=== PATIENT | male | born 1965 | race Caucasian/White ===

== ENCOUNTER 2022-02-27 17:56 | Inpatient (IN) | payer MEDICAID, SELFPAY ==
[2022-02-27 18:28] VITALS: PULSE 82; RESP 18; TEMP 36.8; O2SAT 97; BMI 26.2
[2022-02-27 20:00] VITALS: BP 175/88
--- NOTE | 2022-02-27 21:16 | ECG_ITS ---
Test Reason : MED CLEARANCE Blood Pressure : / mmHG Vent. Rate : 068 BPM Atrial Rate : 068 BPM P-R Int : 142 ms QRS Dur : 086 ms QT Int : 482 ms P-R-T Axes : 057 027 036 degrees QTc Int : 512 ms Normal sinus rhythm Prolonged QT Abnormal ECG No previous ECGs available Referred By: Nohemi Silva Electronically Signed By:KEVAN ALCARAZ
--- NOTE | 2022-02-27 21:21 | ED.ALCOHOL ---
HPI - Alcohol General Chief Complaint: ETOH/Substance Use Stated Complaint: alcohol withdrawal Time Seen by Provider: 02/27/22 20:42 Source: patient and family Mode of arrival: ambulatory Limitations: no limitations History of Present Illness HPI narrative: 57 yo male with history of HTN, HLD, anxiety, depression non compliant with all medication for months here seeking detox for alcohol. Patient reports he drink 1 quart of vodka daily and last drink was around 3pm. he has a history of alcohol withdrawal seizures. He denies additional substance use. He went to [facility] 2 weeks ago but left because he did not like it there. He denies SI. Related Data Allergies Allergy/AdvReac Type Severity Reaction Status Date / Time No Known Allergies Allergy Verified 02/27/22 18:28 Review of Systems Review of Systems: Yes all other systems are reviewed and are negative Constitutional: Constitutional: Reports no additional constitutional complaints, Denies body ache(s), Denies chills, Denies fever(s), Reports headache(s) and Denies weakness Eyes: Eyes: Reports no additional eye complaints and Denies change in vision ENT: Reports system reviewed and no additional complaints, except as documented, Denies dizziness, Reports headache(s), Denies nasal congestion, Denies nasal discharge and Denies neck pain Cardiovascular: Cardiovascular: Reports no additional cardiovascular complaints, Denies chest pain, Denies leg edema and Denies dyspnea Respiratory: Respiratory: Reports no additional respiratory complaints, Denies cough and Denies dyspnea Gastrointestinal: Gastrointestinal: Reports no additional gastrointestinal complaints, Denies abdominal pain, Denies diarrhea, Denies nausea and Denies vomiting Genitourinary: Genitourinary: Denies urinary incontinence Musculoskeletal: Musculoskeletal: Reports no additional musculoskeletal complaints, Denies back pain, Denies arthralgias, Denies joint swelling, Denies neck pain, Denies numbness and Denies tingling Integumentary/Breasts: Skin/Breast: Reports system reviewed and no additional complaints, except as docu and Denies rash Neurologic: Reports system reviewed and no additional complaints, except as documented, Denies dizziness, Reports headache(s), Denies numbness, Denies tingling, Reports tremor(s) and Denies weakness Psychiatric: Psychiatric: Reports anxiety, Denies homicidal ideation and Denies suicidal ideation [facility] Past Medical History Attestation statement: The following information was validated with the patient. Source: old records reviewed and nursing notes reviewed Social History Social History Advance Directives: No Advance Directives Information Provided: Yes Physical Exam ED Vital Signs: Vital Signs - 24 hr 02/27/22 18:28 02/27/22 22:52 02/27/22 20:00 Temperature 98.2 F 98.3 F Pulse Rate 82 82 Respiratory Rate 18 20 Blood Pressure 175/91 H 175/88 H Pulse Oximetry 97 97 Oxygen Delivery Method Room Air Room Air BMI result Body Mass Index 26.2 Const General: alert Orientation/consciousness: patient oriented x3 Limitations: no limitations HENMT Other: Bruising over nasal bridge in various stages of healing with abrasions Head: No Lainez's sign and No raccoon eyes Ears: hearing grossly normal bilaterally Eyes General: appearance normal, both eyes and all related structures Neck Neck: Yes normal visual inspection Chest Chest palpation & inspection: normal inspection of the chest Resp Effort & Inspection: normal respiratory effort Auscultation: clear to auscultation bilaterally GI Inspection: Yes normal to inspection Palpation (GI): Soft to palpation and nontender Back/Spine/Pelvis Thoracic/Lumbar Spine: thoracic and lumbar spine normal to inspection Skin General skin exam: no rashes or lesions noted Neuro General: patient oriented x3 and moves all extremities Cranial nerves: Yes Midline tongue present Cognition (Neuro): normal cognition Gait exam (Neuro): Normal gait present Motor exam (neuro): 5/5 motor strength present throughout Sensory Exam: Normal double simultaneous stimulation for sensation Extrem Other: abrasions over bilateral legs Course Course Course Narrative: Reviewed chemistries. Mild hypokalemia. Will replace orally. Mildly elevated LFTs which is likely secondary to alcohol use. Reevaluation(s) Reevaluation #1: 1050-1 hr post ativan patient scoring CIWA 9. Will start phenobarb protocol Reevaluation #2: 0000-Informed that patient has CIWA of 15 from nursing. Unfortunately, there is delay in obtaining phenobarbital. supervisor partial denture department aware. At this point patient will need admission for management of withdrawal symptoms. Spoke to Dr Diop who accepted admission. I was informed by nursing that family was looking to speak to me. I went to the patients room and he tells me they went home for the night and he does not want me to call them at this time in the night. However, if they call we can share updates with them over the phone. I was also informed by nursing that the patient is c/o left sided chest pain for the last 3 days. Will add troponin. Doubt ACS Reevaluation #3: 0040-troponin is 7. Less likely ACS with symptoms for 3 days MDM - Alcohol MDM Narrative Medical decision making narrative: 57 yo male with long standing history of alcohol abuse here seeking detox. NO SI. CIWA on arrival is 9 Will need labs, tox screen, EKG, lorazepam. Patient may need admission vs detox Differential Diagnosis Differential diagnosis: Likely alcohol dependence, alcohol intoxication, alcohol withdrawal syndrome and alcohol withdrawal seizure Medical Records Attestation: I reviewed the patient's medical records. Lab Data Attestation: I reviewed the patient's lab results. Result diagrams: 02/27/22 21:26 02/27/22 21:26 Labs: Lab Results 02/27/22 02/27/22 02/27/22 Range/Units 21:26 21:26 21:26 WBC 5.5 (4.8-10.8) X10*3/uL RBC 4.17 L (4.60-5.80) X10*6/uL Hgb 13.0 L (14.0-18.0) g/dl Hct 37.5 L (42.0-52.0) % MCV 89.9 (80.0-98.0) fL MCH 31.2 (27.0-33.0) pg MCHC 34.7 (31.0-36.0) g/dl RDW 15.2 (11.0-16.0) % Plt Count 171 (160-400) X10*3/uL MPV 8.8 L (9.4-12.4) fL Immature Gran % (Auto) 0.4 (0.0-0.4) % Neut % (Auto) 61.8 (45-73) % Lymph % (Auto) 24.5 (20-40) % Valencia % (Auto) 11.7 H (2-11) % Eos % (Auto) 0.9 (0-4) % Baso % (Auto) 0.7 (0-2) % Lymph # (Auto) 1.3 (1.2-4.9) X10*3/uL Valencia # (Auto) 0.6 (0.1-1.2) X10*3/uL Eos # (Auto) 0.1 (0.0-0.4) X10*3/uL Baso # (Auto) 0.0 (0.0-0.2) X10*3/uL Abs Immat Gran (auto) 0.02 (0.00-0.03) X10*3/uL Absolute Neuts (auto) 3.4 (2.0-8.3) x10*3/uL Absolute Nucleated RBC 0.000 (0.0-0.012) X10*3/uL Nucleated RBC % (auto) 0.0 (0.0-0.2) /100WBC Sodium 140 (135-145) mmol/L Potassium 3.1 L (3.3-5.1) mmol/L Chloride 98 (96-108) mmol/L Carbon Dioxide 27 (22-29) mmol/L Anion Gap 18 (12-20) BUN 10 (9-16) mg/dL Creatinine 0.71 (0.5-1.4) mg/dL Estim Creat Clear Calc 116.1 Estimated GFR > 60 Random Glucose 120 H (60-115) mg/dL Calcium 9.5 (8.4-10.2) mg/dL Magnesium (1.6-2.6) mg/dL Total Bilirubin (0.0-1.0) mg/dL Direct Bilirubin (0.0-0.5) mg/dL AST (5-37) U/L ALT (0-40) U/L Alkaline Phosphatase (39-117) U/L Troponin I High Sens (<3.5-35.0) ng/L Total Protein (6.5-8.0) g/dL Albumin (3.5-5.0) g/dL Ethyl Alcohol 62 mg/dL COVID-19 (ABDIRIZAK) (Negative) COVID-19 Clin Com 02/27/22 02/27/22 02/27/22 Range/Units 21:26 21:26 22:57 WBC (4.8-10.8) X10*3/uL RBC (4.60-5.80) X10*6/uL Hgb (14.0-18.0) g/dl Hct (42.0-52.0) % MCV (80.0-98.0) fL MCH (27.0-33.0) pg MCHC (31.0-36.0) g/dl RDW (11.0-16.0) % Plt Count (160-400) X10*3/uL MPV (9.4-12.4) fL Immature Gran % (Auto) (0.0-0.4) % Neut % (Auto) (45-73) % Lymph % (Auto) (20-40) % Valencia % (Auto) (2-11) % Eos % (Auto) (0-4) % Baso % (Auto) (0-2) % Lymph # (Auto) (1.2-4.9) X10*3/uL Valencia # (Auto) (0.1-1.2) X10*3/uL Eos # (Auto) (0.0-0.4) X10*3/uL Baso # (Auto) (0.0-0.2) X10*3/uL Abs Immat Gran (auto) (0.00-0.03) X10*3/uL Absolute Neuts (auto) (2.0-8.3) x10*3/uL Absolute Nucleated RBC (0.0-0.012) X10*3/uL Nucleated RBC % (auto) (0.0-0.2) /100WBC Sodium (135-145) mmol/L Potassium (3.3-5.1) mmol/L Chloride (96-108) mmol/L Carbon Dioxide (22-29) mmol/L Anion Gap (12-20) BUN (9-16) mg/dL Creatinine (0.5-1.4) mg/dL Estim Creat Clear Calc Estimated GFR Random Glucose (60-115) mg/dL Calcium (8.4-10.2) mg/dL Magnesium 1.6 (1.6-2.6) mg/dL Total Bilirubin 1.2 H (0.0-1.0) mg/dL Direct Bilirubin 0.4 (0.0-0.5) mg/dL AST 128 H (5-37) U/L ALT 108 H (0-40) U/L Alkaline Phosphatase 116 (39-117) U/L Troponin I High Sens 7.4 (<3.5-35.0) ng/L Total Protein 6.8 (6.5-8.0) g/dL Albumin 4.1 (3.5-5.0) g/dL Ethyl Alcohol mg/dL COVID-19 (ABDIRIZAK) Negative (Negative) COVID-19 Clin Com See Note ECG Data ECG #1: Attestation: I personally reviewed and interpreted this ECG as follows: ECG interpretation date: 02/27/22 ECG interpretation time: 21:30 Interpretation: NSR with rate 68, normal pr, normal qrs, normal qt T waves peaked Discharge Plan Discharge Clinical Impression: Alcohol withdrawal syndrome Patient Disposition: Admitted As Inpatient
[2022-02-27] MEDS: lisinopriL 10 MG TABLET PO (21:32)
[2022-02-27] MEDS: LORazepam 1 MG TABLET 2 MG PO (21:32)
[2022-02-27 21:34] LABS: Eosinophils Absolute Auto 0.1 X10*3/uL (0.0-0.4); Eosinophils Percent Auto 0.9 % (0-4); Imm Gran Abs Auto 0.02 X10*3/uL (0.00-0.03); Imm Gran Pct Auto 0.4 % (0.0-0.4); Mean Corpuscular HGB Conc 34.7 g/dl (31.0-36.0); PLT CLUMP 1; SCAN SMEAR FLAG 1
--- NOTE | 2022-02-27 21:34 | PC.NURSE ---
IV established, labs obtained, pt medicated per SEP.
[2022-02-27 21:36] LABS: Basophils Percent Auto 0.7 % (0-2); Hematocrit 37.5 % (42.0-52.0); Lymphocytes Absolute Auto 1.3 X10*3/uL (1.2-4.9); Lymphocytes Percent Auto 24.5 % (20-40); Mean Corpuscular Hemoglobin 31.2 pg (27.0-33.0); Mean Corpuscular Volume 89.9 fL (80.0-98.0); Mean Platelet Volume 8.8 fL (9.4-12.4); Monocytes Absolute Auto 0.6 X10*3/uL (0.1-1.2); Monocytes Percent Auto 11.7 % (2-11); Neutrophils Absolute Auto 3.4 x10*3/uL (2.0-8.3); Neutrophils Percent Auto 61.8 % (45-73); Red Blood Count 4.17 X10*6/uL (4.60-5.80); Red Cell Distribution Width 15.2 % (11.0-16.0)
[2022-02-27 21:40] LABS: Platelet Count 171 X10*3/uL (160-400); White Blood Count 5.5 X10*3/uL (4.8-10.8)
[2022-02-27 22:02] LABS: Ethanol 62 mg/dL
[2022-02-27 22:03] LABS: Anion Gap 18 (12-20); Blood Urea Nitrogen 10 mg/dL (9-16); Calcium 9.5 mg/dL (8.4-10.2); Carbon Dioxide 27 mmol/L (22-29); Chloride 98 mmol/L (96-108); Creatinine Clr Calc Pharmacy 116.1; Estimated Glomerular Filt Rate > 60; Glucose Random 120 mg/dL (60-115); Potassium 3.1 mmol/L (3.3-5.1); Sodium 140 mmol/L (135-145)
[2022-02-27 22:08] LABS: Alanine Aminotransferase 108 U/L (0-40); Albumin Level 4.1 g/dL (3.5-5.0); Alkaline Phosphatase 116 U/L (39-117); Aspartate Amino Transferase 128 U/L (5-37); Bilirubin Direct 0.4 mg/dL (0.0-0.5); Bilirubin Total 1.2 mg/dL (0.0-1.0); Magnesium 1.6 mg/dL (1.6-2.6); Total Protein 6.8 g/dL (6.5-8.0)
[2022-02-27 22:52] VITALS: BP 175/91; PULSE 82; RESP 20; TEMP 36.8; O2SAT 97
[2022-02-27 23:23] LABS: COVID-19 Test Negative (Negative); IDNOW Serial# 16C4AD1C
[2022-02-27 23:34] LABS: MANUAL DIFF FLAG NO
[2022-02-27] MEDS: Potassium Chloride ER 20 MEQ TAB.ER.PRT 40 MEQ PO (23:37)
--- NOTE | 2022-02-27 23:38 | PC.NURSE ---
rn to bedside to find pt awake, alert, skin pwd, respirations even and unlabored without distress. pt reports left sided chest pain that has been present x3 days and is constant without any changes. Pt inquiring about Injection provider made him aware of to assist with current symptoms; RN consulting MD and charge master analyst regarding our policy as patient not slated for admission at this time. Pt had a bedside visitor present briefly looking for updates and requesting that the provider speak with them directly as they are looking to see whether they should stay and/or leave; RN to make PA aware. Pt currently scoring 15 on the CIWA scale at this time due to reported symptoms, PA and MD to be made aware.
--- NOTE | 2022-02-28 00:01 | PC.NURSE ---
nursing inspection and testing supervisor outreached via tigertext requesting phenobarbital as the medication is not available on the unit. pt and pa to be made aware
[2022-02-28] MEDS: PHENobarbitaL sodium 130 MG/ML IM ONCE 226 MG IM (00:39)
[2022-02-28 00:40] LABS: Troponin-I High Sensitivity 7.4 ng/L (<3.5-35.0)
[2022-02-28 01:30] VITALS: BP 141/85; PULSE 80; RESP 24; O2SAT 96
[2022-02-28 03:15] VITALS: BP 141/84; PULSE 76; RESP 18; O2SAT 95
[2022-02-28] MEDS: PHENobarbitaL sodium 130 MG/ML VIAL IM Q3Hx2 170 MG IM ×2 (03:52→07:40)
[2022-02-28] MEDS: 0.9 % Sodium Chloride 1,000 ML 100 ML IVCONT ×3 (03:52→22:06)
[2022-02-28 07:00] LABS: MANUAL DIFF FLAG NO
[2022-02-28 07:05] LABS: Basophils Percent Auto 0.3 % (0-2); Eosinophils Absolute Auto 0.1 X10*3/uL (0.0-0.4); Hematocrit 33.6 % (42.0-52.0); Hemoglobin 11.7 g/dl (14.0-18.0); Imm Gran Abs Auto 0.03 X10*3/uL (0.00-0.03); Imm Gran Pct Auto 0.5 % (0.0-0.4); Lymphocytes Absolute Auto 1.4 X10*3/uL (1.2-4.9); Lymphocytes Percent Auto 22.7 % (20-40); Mean Corpuscular HGB Conc 34.8 g/dl (31.0-36.0); Mean Corpuscular Volume 88.9 fL (80.0-98.0); Mean Platelet Volume 9.5 fL (9.4-12.4); Monocytes Absolute Auto 0.9 X10*3/uL (0.1-1.2); Monocytes Percent Auto 14.5 % (2-11); Neutrophils Absolute Auto 3.6 x10*3/uL (2.0-8.3); Platelet Count 147 X10*3/uL (160-400); Red Blood Count 3.78 X10*6/uL (4.60-5.80); Red Cell Distribution Width 14.7 % (11.0-16.0); White Blood Count 5.9 X10*3/uL (4.8-10.8)
--- NOTE | 2022-02-28 07:07 | P.HPHOSP_ITS ---
History of Present Illness Date of Service: 02/28/22 Chief Complaint: alcohol withdrawal 57-year-old male with past medical history of alcohol abuse presents to the hospital with alcohol withdrawal. Patient reports that he is interested in detox and his last drink was was about a day ago. He drinks about a qt of alcohol a day history of withdrawal seizures. Patient has nausea, no vomiting, has anxiety, and shaking, he has no hallucinations. patient denies any headache, no change in vision, no abdominal pain, no urinary symptoms and no lower extremity edema. On arrival to the ED patient hemodynamically stable though significant abnormal vitals except for hypertension. Labs are significant for WBC count of 5.9, hemoglobin of 11.7, hematocrit 33.6, total bili of 1.2, AST of 128, ALT of 108 patient started on phenobarb protocol be admitted further management Review of Systems Review of Systems: Yes all other systems are reviewed and are negative [facility] Medical History Alcohol abuse Family History (Updated 02/28/22 @ 07:20 by Genevieve Diop MD) Other No family history of coronary artery disease Surgical History (Updated 02/28/22 @ 07:21 by Genevieve Diop MD) History of hernia repair Social History (Updated 02/28/22 @ 07:22 by Genevieve Diop MD) Alcohol intake: current Tobacco use type: Cigarette Cigarette Packs Per Day: 1 Use of substances other than those prescribed or required for medical reasons: No Advance Directives: No Advance Directives Information Provided: Yes Meds Allergies Allergy/AdvReac Type Severity Reaction Status Date / Time No Known Allergies Allergy Verified 02/27/22 18:28 Active Medications: Current Medications Acetaminophen (Acetaminophen 325 Mg Tablet) 650 mg PO Q6H PRN PRN Reason: Pain, Mild (Pain Scale 1-3) Docusate Sodium (Docusate Sodium 100 Mg Capsule) 100 mg PO DAILY PRN PRN Reason: Constipation Enoxaparin Sodium (Enoxaparin Sodium 40 Mg/0.4 Ml Syringe) 40 mg SUBCUT Q24H [facility] Folic Acid (Folic Acid 1 Mg Tablet) 1 mg PO DAILY [facility] Sodium Chloride (Ns) 1,000 mls @ 100 mls/hr IVCONT .Q10H [facility] Last Admin: 02/28/22 03:52 Dose: 100 mls/hr Ondansetron HCl (Ondansetron Hcl 4 Mg/2 Ml Vial) 4 mg IVPUSH Q8H PRN PRN Reason: Nausea and Vomiting Pharmacy Consult (Consult Rx Etoh Phenob Im/Po) 1 each MISCELLANE ONCE PRN; Protocol PRN Reason: Consult order Pharmacy Consult (Consult Rx Perform Med Rec) 1 each MISCELLANE ONCE PRN PRN Reason: Consult order Phenobarbital (Phenobarbital 15 Mg Tablet) 45 mg PO BID [facility] Stop: 03/02/22 09:01 Phenobarbital (Phenobarbital 15 Mg Tablet) 15 mg PO BID [facility] Stop: 03/04/22 09:01 Phenobarbital (Phenobarbital 15 Mg Tablet) 15 mg PO BEDTIME [facility] Stop: 03/05/22 21:01 Sodium Chloride (0.9 % Sodium Chloride Flush 3 Ml Syringe) 3 ml IVFLUSH QSHIFT [facility] Thiamine HCl (Thiamine Hcl 100 Mg Tablet) 100 mg PO DAILY [facility] Home Medications Medication Instructions Recorded Confirmed Last Taken Type No Known Home Meds 02/28/22 02/28/22 Unknown History Physical Exam Vital Signs and Narrative: Vital Signs: Last Vital Signs Temp 98.3 F 02/27/22 22:52 Pulse 76 02/28/22 03:15 Resp 18 02/28/22 03:15 BP 141/84 H 02/28/22 03:15 Pulse Ox 95 02/28/22 03:15 O2 Del Method 02/28/22 03:15 BMI result Body Mass Index 26.2 Results Labs CBC and Chem 7: 02/28/22 06:37 02/27/22 21:26 Labs: Laboratory Results - last 24 hr 02/27/22 02/27/22 02/27/22 21:26 21:26 21:26 MCV 89.9 MCH 31.2 MCHC 34.7 RDW 15.2 Plt Count 171 MPV 8.8 L Immature Gran % (Auto) 0.4 Neut % (Auto) 61.8 Lymph % (Auto) 24.5 [place] % (Auto) 11.7 H Eos % (Auto) 0.9 Baso % (Auto) 0.7 Lymph # (Auto) 1.3 [place] # (Auto) 0.6 Eos # (Auto) 0.1 Baso # (Auto) 0.0 Abs Immat Gran (auto) 0.02 Absolute Neuts (auto) 3.4 Absolute Nucleated RBC 0.000 Nucleated RBC % (auto) 0.0 Anion Gap 18 Estim Creat Clear Calc 116.1 Estimated GFR > 60 Random Glucose 120 H Calcium 9.5 Magnesium Total Bilirubin Direct Bilirubin AST ALT Alkaline Phosphatase Total Protein Albumin Ethyl Alcohol 62 COVID-19 (ABDIRIZAK) COVID-19 Clin Com 02/27/22 02/27/22 02/28/22 21:26 22:57 06:37 MCV 88.9 MCH 31.0 MCHC 34.8 RDW 14.7 Plt Count 147 L MPV 9.5 Immature Gran % (Auto) 0.5 H Neut % (Auto) 61.0 Lymph % (Auto) 22.7 Union % (Auto) 14.5 H Eos % (Auto) 1.0 Baso % (Auto) 0.3 Lymph # (Auto) 1.4 [place] # (Auto) 0.9 Eos # (Auto) 0.1 Baso # (Auto) 0.0 Abs Immat Gran (auto) 0.03 Absolute Neuts (auto) 3.6 Absolute Nucleated RBC 0.000 Nucleated RBC % (auto) 0.0 Anion Gap Estim Creat Clear Calc Estimated GFR Random Glucose Calcium Magnesium 1.6 Total Bilirubin 1.2 H Direct Bilirubin 0.4 AST 128 H ALT 108 H Alkaline Phosphatase 116 Total Protein 6.8 Albumin 4.1 Ethyl Alcohol COVID-19 (ABDIRIZAK) Negative COVID-19 Clin Com See Note Assessment and Plan (1) Alcohol withdrawal syndrome: Status: Acute Plan 57-year-old male with a past medical history of alcohol abuse presents to the hospital with alcohol withdrawals # alcohol abuse with alcohol withdrawal - has CIWA of 15 - started on phenobarb protocol, will add thiamine and folic acid - monitor withdrawal symptoms dvt ppx: lovenox Quality Stroke Does the patient have a stroke diagnosis?: No VTE Prior VTE?: No VTE Risk Level:: Medical - moderate - high VTE Device Contraindication: Treatment Not Indicated VTE Drug Contraindication: N/A - Med Ordered
[2022-02-28 07:28] LABS: Anion Gap 14 (12-20); Blood Urea Nitrogen 9 mg/dL (9-16); Carbon Dioxide 25 mmol/L (22-29); Chloride 101 mmol/L (96-108); Creatinine Clr Calc Pharmacy 135.2; Estimated Glomerular Filt Rate > 60; Glucose Random 97 mg/dL (60-115); Sodium 136 mmol/L (135-145)
[2022-02-28 07:39] VITALS: BP 124/64; PULSE 74; RESP 19; O2SAT 97
[2022-02-28 07:45] LABS: Calcium 8.6 mg/dL (8.4-10.2)
--- NOTE | 2022-02-28 08:22 | PHA.MEDREC ---
Pharmacy Consult ? Medication Reconciliation Pharmacy has completed the medication reconciliation.
[2022-02-28] MEDS: Enoxaparin Sodium 40 MG/0.4 ML SYRINGE SUBCUT (09:04)
[2022-02-28] MEDS: Thiamine HCL 100 MG TABLET PO (09:05)
[2022-02-28] MEDS: Folic Acid 1 MG TABLET PO (09:05)
[2022-02-28 09:08] LABS: Alanine Aminotransferase 89 U/L (0-40); Albumin Level 3.5 g/dL (3.5-5.0); Alkaline Phosphatase 101 U/L (39-117); Aspartate Amino Transferase 104 U/L (5-37); Bilirubin Direct 0.7 mg/dL (0.0-0.5); Bilirubin Total 1.9 mg/dL (0.0-1.0); Total Protein 5.5 g/dL (6.5-8.0)
[2022-02-28] MEDS: Nicotine 21 MG PATCH.TD24 TRANSDERMA (10:14)
--- NOTE | 2022-02-28 11:19 | MHC.RECOVRN ---
Chart reviewed. Attempted to meet with pt. Pt sleeping. Will return at a later time. T/w available as needed.
[2022-02-28 12:38] VITALS: BP 129/67; PULSE 67; RESP 16; O2SAT 97
--- NOTE | 2022-02-28 13:26 | MHC.RECOVRN ---
Attempted to meet with pt, soundly sleeping, snoring. Does not wake to name. Will follow up at a different time.
--- NOTE | 2022-02-28 14:19 | PM.EVENT ---
Event Note Date of Service: 02/28/22 Event Note: Patient was admitted-alcohol withdrawal, Seen and examined again-still tramulous and anxious. Physical exam: Appearance: Alert.? Oriented X3.anxious and tramulous . cvs: rrr, [id number] , no murmur res: clear to auscultation ,no rhonchii or wheezing abd: no rebound or guarding ,nt, bs present. ext pulses present , no cyanosis. neuro: axo3 , nonfocal. assessment and plan coordinated in h&p note.
[2022-02-28] MEDS: Acetaminophen 325 MG TABLET 650 MG PO (14:54)
--- NOTE | 2022-02-28 15:30 | MHC.CM.PN ---
No IMM Required PATIENT LIVES ALONE, IS INDEPENDENT AT HOME AND COMMUNITY, DENIES USE OF DME OR RECEIVING HOME SERVICES, NOT COVID VAX'D, PCP-LEANNA MENDEZ, HCP-EDUCATED/DECLINED TO COMPLETE AT THIS TIME, FAMILY/FRIEND WILL TRANSPORT. D/C PLAN: HOME SELF-CARE vs CARE TEAM RECOMMENDATION
[2022-02-28 21:27] VITALS: BP 158/85; PULSE 65; RESP 18; TEMP 36.6; O2SAT 98
[2022-02-28] MEDS: PHENobarbitaL 15 MG TABLET 45 MG PO (21:35)
[2022-02-28] MEDS: 0.9 % Sodium Chloride Flush 3 ML SYRINGE IVFLUSH (23:29)
--- NOTE | 2022-03-01 02:30 | PC.NURSE ---
Patient complaining of feeling anxious and shaky, noises at the ER drive him insane. Pt pulled out IV line with NS running-patient reports he does not want IV line to be reinserted. BP 169/94. P 84, O2 Sat 98% RA. Dr. Diop notified-MD will prescribe Ativan PRN.
[2022-03-01] MEDS: LORazepam 1 MG TABLET PO (02:38)
[2022-03-01 04:26] VITALS: BP 134/76; PULSE 74; RESP 18; TEMP 36.6; O2SAT 97
[2022-03-01 05:00] LABS: Alanine Aminotransferase 76 U/L (0-40); Albumin Level 3.4 g/dL (3.5-5.0); Alkaline Phosphatase 94 U/L (39-117); Anion Gap 14 (12-20); Aspartate Amino Transferase 89 U/L (5-37); Bilirubin Direct 0.5 mg/dL (0.0-0.5); Bilirubin Total 0.9 mg/dL (0.0-1.0); Blood Urea Nitrogen 8 mg/dL (9-16); Calcium 8.5 mg/dL (8.4-10.2); Carbon Dioxide 24 mmol/L (22-29); Chloride 101 mmol/L (96-108); Creatinine Clr Calc Pharmacy 137.4; Estimated Glomerular Filt Rate > 60; Glucose Random 101 mg/dL (60-115); Potassium 3.5 mmol/L (3.3-5.1); Sodium 135 mmol/L (135-145); Total Protein 5.4 g/dL (6.5-8.0)
[2022-03-01] MEDS: Acetaminophen 325 MG TABLET 650 MG PO ×2 (06:20→13:20)
--- NOTE | 2022-03-01 06:34 | PC.NURSE ---
Patient declining IV line to be re inserted-educated patient in importance of receiving IV hydration-pt continues to decline. Dr. Diop notified of patient declining IV line re insertion-no new orders at this time.
[2022-03-01 08:26] VITALS: BP 142/86; PULSE 73; RESP 16; TEMP 37; O2SAT 98
[2022-03-01 08:44] VITALS: BP 138/84; PULSE 74; RESP 18; O2SAT 97
[2022-03-01] MEDS: Enoxaparin Sodium 40 MG/0.4 ML SYRINGE SUBCUT (08:47)
[2022-03-01] MEDS: Thiamine HCL 100 MG TABLET PO (08:47)
[2022-03-01] MEDS: Folic Acid 1 MG TABLET PO (08:47)
[2022-03-01] MEDS: 0.9 % Sodium Chloride Flush 3 ML SYRINGE IVFLUSH (08:48)
[2022-03-01] MEDS: Nicotine 21 MG PATCH.TD24 TRANSDERMA (08:48)
[2022-03-01] MEDS: Clopidogrel Bisulfate 75 MG TABLET PO (09:37)
[2022-03-01] MEDS: PHENobarbitaL 15 MG TABLET 45 MG PO (09:37)
[2022-03-01 11:49] VITALS: BP 152/94; PULSE 59; RESP 16; O2SAT 98
--- NOTE | 2022-03-01 12:05 | PC.NURSE ---
Upon start of shift patient does not have an IV line. Dr. Talbert notified. This RN asked patient if he could start an IV line but patient refused. Dr. Talbert notified.
--- NOTE | 2022-03-01 12:23 | P.PNIM_ITS ---
Subjective Subjective Date of Service: 03/01/22 Interval History: complaining of tremors, lack of sleep and generalized body ache due to fall, refusing IV line, asking for Klonopin for sleep, no other acute issues overnight, denies nausea vomiting abdominal pain tolerating diet. 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 Neck no JVD. CVS regular rate rhythm, Respiratory lungs clear to auscultation, no respiratory distress, no wheeze, no rhonchi. Gastrointestinal abdomen soft, nontender, bowel sounds audible, no guarding , no rigidity. Extremities no edema. Neuro nonfocal ,speech clear, hand tremors. Skin facial bruise/ multiple dry scab upper extremity psych appropriate affect Objective Data Active Medications Acetaminophen (Acetaminophen 325 Mg Tablet) 650 mg PO Q6H PRN PRN Reason: Pain, Mild (Pain Scale 1-3) Last Admin: 03/01/22 06:20 Dose: 650 mg Documented By: MAL Clopidogrel Bisulfate (Clopidogrel Bisulfate 75 Mg Tablet) 75 mg PO DAILY [facility] Last Admin: 03/01/22 09:37 Dose: 75 mg Documented By: ANITA Docusate Sodium (Docusate Sodium 100 Mg Capsule) 100 mg PO DAILY PRN PRN Reason: Constipation Enoxaparin Sodium (Enoxaparin Sodium 40 Mg/0.4 Ml Syringe) 40 mg SUBCUT Q24H [facility] Last Admin: 03/01/22 08:47 Dose: 40 mg Documented By: ANITA Folic Acid (Folic Acid 1 Mg Tablet) 1 mg PO DAILY [facility] Last Admin: 03/01/22 08:47 Dose: 1 mg Documented By: ANITA Hydroxyzine HCl (Hydroxyzine Hcl 25 Mg Tablet) 25 mg PO Q6H PRN PRN Reason: anxiety/restlessness Nicotine (Nicotine 21 Mg Patch.Td24) 21 mg TRANSDERMA DAILY [facility] Last Admin: 03/01/22 08:48 Dose: 21 mg Documented By: ANITA Ondansetron HCl (Ondansetron Hcl 4 Mg/2 Ml Vial) 4 mg IVPUSH Q8H PRN PRN Reason: Nausea and Vomiting Pharmacy Consult (Consult Rx Etoh Phenob Im/Po) 1 each MISCELLANE ONCE PRN; Protocol PRN Reason: Consult order Pharmacy Consult (Consult Rx Perform Med Rec) 1 each MISCELLANE ONCE PRN PRN Reason: Consult order Phenobarbital (Phenobarbital 15 Mg Tablet) 45 mg PO BID [facility] Stop: 03/02/22 09:01 Last Admin: 03/01/22 09:37 Dose: 45 mg Documented By: ANITA Phenobarbital (Phenobarbital 15 Mg Tablet) 15 mg PO BID [facility] Stop: 03/04/22 09:01 Phenobarbital (Phenobarbital 15 Mg Tablet) 15 mg PO BEDTIME [facility] Stop: 03/05/22 21:01 Sodium Chloride (0.9 % Sodium Chloride Flush 3 Ml Syringe) 3 ml IVFLUSH QSHIFT [facility] Last Admin: 03/01/22 08:48 Dose: 3 ml Documented By: ANITA Thiamine HCl (Thiamine Hcl 100 Mg Tablet) 100 mg PO DAILY [facility] Last Admin: 03/01/22 08:47 Dose: 100 mg Documented By: ANITA Labs CBC & Chem 7: 02/28/22 06:37 03/01/22 04:03 Labs: Laboratory Results - last 24 hr 03/01/22 04:03 Anion Gap 14 Estim Creat Clear Calc 137.4 Estimated GFR > 60 Random Glucose 101 Calcium 8.5 Total Bilirubin 0.9 Direct Bilirubin 0.5 AST 89 H ALT 76 H Alkaline Phosphatase 94 Total Protein 5.4 L Albumin 3.4 L Assessment and Plan (1) Alcohol withdrawal syndrome: Status: Acute Plan 57 yo male with history of HTN, HLD, anxiety, depression is status post CVA wit h poor balance and recurrent fallsnon presented to ER seeking detox for alcohol. Patient reports he drink 1 quart of vodka daily and last drink was the day prior to admission, has history of alcohol withdrawal seizures. He denies additional substance use. He went to [facility] 2 weeks ago but left because he did not like it there. He denies SI. # alcohol abuse/ withdrawal persistent tremors, continue phenobarb protocol add hydroxyzine hold home dose of Klonopin continue folic acid thiamine care team consult DC threat monitoring analyst # hypokalemia resolved, check magnesium level # elevated LFTs likely alcoholic hepatitis no nausea, no vomiting, tolerating diet, statin held will resume upon discharge strongly advised to abstain from alcohol # tobacco use disorder continue nicotine patch counseling done # hypertension resume lisinopril low-dose 10 mg at home takes lisinopril 30 mg. # history of CVA with recurrent falls due to chronic impaired balance continue Plavix, add oxycodone as needed PT eval once tremors resolves # DVT prophylaxis on Lovenox platelets 147 will follow patient need continue inpatient hospitalization due to alcohol withdrawal tremors currently on phenobarb protocol Quality Stroke Does the patient have a stroke diagnosis?: No VTE Prior VTE?: No VTE Risk Level:: Medical - moderate - high VTE Device Contraindication: Treatment Not Indicated VTE Drug Contraindication: N/A - Med Ordered
--- NOTE | 2022-03-01 12:53 | PC.NURSE ---
Patient refused to keep grounds supervisor stickers on. Dr. Talbert notified
[2022-03-01] MEDS: hydrOXYzine HCL 25 MG TABLET PO (13:22)
[2022-03-01 13:36] LABS: Magnesium 1.3 mg/dL (1.6-2.6)
--- NOTE | 2022-03-01 14:35 | PC.NURSE ---
Dr Talbert aware of Magnesium level. Requested that IV be reinserted as patient pulled out own IV last night This RN went and spoke with patient. Pt adamantly refusing to allow an IV to be reinserted. I don't need a fucking IV, I can drink pedialyte Dr Talbert aware.
[2022-03-01 15:18] VITALS: BP 129/71; PULSE 72; RESP 18; O2SAT 97
[2022-03-01] MEDS: lisinopriL 10 MG TABLET PO (15:18)
--- NOTE | 2022-03-01 15:52 | MHC.RECOVRN ---
Was able to meet with pt in ED2 this morning to discuss alcohol use. Pt awake, alert, disinterested in discussion and adversarial at first but began to be less guarded as conversation continued. Pt reports alcohol use x 40 years with it becoming problematic at the beginning of COVID. 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 Currently, pt is drinking 1/4 gallon vodka daily x approx 2 months. Pt has entered tx a few times, the first being last May at [facility]. Pt has also entered [facility] but did not complete. Pt was [facility] by sister on November 23, 2021 and was released from [facility] on January 14, 2022. Pt reports approx 10 days of abstinence before returning to alcohol use. Pt did obtain a [employer] [employer] through [facility] who pt finds helpful. Pt has attended one AA meeting which pt did not find helpful. Pt declines inpatient treatment for AUD, however, is open to outpatient options. Not interested in IOP. Discussed [facility] and [facility], pt open to meeting with [facility] while inpatient. Pt also looking to reconnect with PCP. Pt has many supportive people, including friends, sister, and mother. Denies other questions or concerns at this time. Discussed with Marija Landaverde APRN.
--- NOTE | 2022-03-01 18:38 | PC.NURSE ---
pt is wanting to leave [facility], dr magana aware and said that he can sign out [facility]
--- NOTE | 2022-03-01 18:47 | PM.DS ---
DS: Providers Provider Date of Service: 03/01/22 Date of admission: 02/28/22 00:08 Primary care physician: JO Sanchez Consults: 02/28/22 00:08 Consult to Care Team Routine Comment: Reason for consultation: alcohol detox 03/01/22 12:50 Consult to Care Team Routine Comment: Reason for consultation: alcohol DS: Diagnosis Discharge Diagnosis (1) Alcohol withdrawal syndrome: Status: Acute DS: Summary Hospital Course Hospital Course: Date of Service: 02/28/22 Chief Complaint: alcohol withdrawal ?57-year-old male with past medical history of alcohol abuse presents to the hospital with alcohol withdrawal.? Patient reports that he is interested in detox and his last drink was was about a day ago.? He drinks about a qt of alcohol a day history of withdrawal seizures. ? Patient has nausea, no vomiting, has anxiety,? and shaking, he has no hallucinations. patient denies any headache, no change in vision, no abdominal pain,? no urinary symptoms and no lower extremity edema. ? On arrival to the ED patient hemodynamically stable though significant abnormal vitals except for hypertension. ? Labs are significant for WBC count of 5.9, hemoglobin of 11.7, hematocrit 33.6,? total bili of 1.2, AST of 128, ALT of 108 ?patient started on phenobarb protocol be admitted further management Hospital course 57 yo male with history of HTN, HLD, anxiety, depression? is status post CVA with poor balance and recurrent fallsnon? presented to ER seeking detox for alcohol. Patient reports he drink 1 quart of vodka daily and last drink was? the day prior to admission, has? history of alcohol withdrawal seizures. He denies additional substance use. He went to [facility] 2 weeks ago but left because he did not like it there. patient admitted to medical floor with a diagnosis alcohol abuse/ withdrawal, he was placed on phenobarb protocol, hydroxyzine was added due to anxiety and restlessness patient was also placed on folic acid and thiamine, however patient decided to leave hospital against medical advice for no obvious reason, has prior history of leaving facilities against medical advice. patient is aware of risk of withdrawal seizures. ?? Patient also noted to have hypokalemia and hypomagnesemia that was aggressively replaced patient refused to have IV line therefore oral supplements were given, patient also noted to have elevated LFTs likely due to alcoholic hepatitis patient was asymptomatic statins were held and he has been strongly advised to abstain from alcohol patient also smoke 1-1 and half pack of cigarettes and he has been recommended to continue nicotine patch in regard to hypertension and prior history of CV he has been continued on Plavix and lisinopril. Time Spent with Patient Time attestation: Total time spent providing and/or coordinating discharge services: Discharge coordination time: Greater than 30 minutes Quality: Safe Use of Opioids Does Pt have an Active Cancer Diagnosis on the Problem List?: No Quality: Stroke Does the patient have a stroke diagnosis?: No Physical Exam Vital Signs: Vital Signs: Last Vital Signs Temp 98.6 F 03/01/22 08:26 Pulse 72 03/01/22 15:18 Resp 18 03/01/22 15:18 BP 129/71 03/01/22 15:18 Pulse Ox 97 03/01/22 15:18 O2 Del Method 03/01/22 15:18 BMI result Body Mass Index 26.2 Const: Other: General? awake will rt x3, no acute di stress.? Neck? no JVD. CVS? regular rate rhythm, Respi ratory lungs clear to auscultation, no respiratory dis tress, no wheeze, no rhonchi. Gastro intestinal abdomen soft, nontender, bowel sounds audib le, no guarding , no rigidity. Extre mities no edema. N euro nonfocal ,spe ech clear, hand tr emors. Skin? facia l bruise/ multiple dry scab upper ex tremity ?psych regla ropriate affect DS: Data Data Completed and Pending Completed studies during hospitalization [Text1]: Procedures Detoxification Services for Substance Abuse Treatment (02/28/22) Discharge Plan Discharge Patient Disposition: Left Against Medical Advice Discharge Diagnosis: Alcohol abuse/withdrawal hypokalemia hypo magnesemia elevated LFTs Referrals: Arely Sykes PA [Primary Care Provider] - 1 Week Discharge Medications: Continued buspirone 5 mg tablet 1.5 tab PO DAILY clonazepam 1 mg tablet 0.5 - 1 tab PO BEDTIME PRN (Reason: Sleep) clopidogrel 75 mg tablet 1 tab PO DAILY lisinopril 30 mg tablet 1 tab PO DAILY Discontinued atorvastatin 40 mg tablet 1 tab PO BEDTIME Discharge Orders: Discharge Order (Routine); Ordered 03/06/22 Ordered By: Higinio Talbert Care Plan Goals: complete abstinence from alcohol Health Concerns: hypertension/CVA/hypokalemia hold statins follow-up on LFTs Plan of Treatment: follow-up with primary care physician Assessment: as per discharge summary Discharge Date/Time: 03/01/22 19:00
== END 2022-03-01 19:00 | disposition left against medical advice (07) | DRG 425 ==
LOC: HO.ED 02-28 00:08 → HO.EDOVER 02-28 00:11
PROVIDERS: Emergency Medicine; Internal Medicine; Nurse Practitioner Family; Admitting Provider Internal Medicine; Emergency Provider Emergency Medicine; PCP Physician Assistant; Visit Provider Hospitalist
DX: E87.6 Hypokalemia (principal); E78.5 Hyperlipidemia, unspecified; F10.139 Alcohol abuse with withdrawal, unspecified; F17.210 Nicotine dependence, cigarettes, uncomplicated; I10 Essential (primary) hypertension; F41.9 Anxiety disorder, unspecified; I69.898 Other sequelae of other cerebrovascular disease; R26.89 Other abnormalities of gait and mobility; R29.6 Repeated falls; Z91.81 History of falling; Y90.3 Blood alcohol level of 60-79 mg/100 ml; Z20.822 Contact with and (suspected) exposure to COVID-19; Z91.14 Patient's other noncompliance with medication regimen; Z71.6 Tobacco abuse counseling; Z79.02 Long term (current) use of antithrombotics/antiplatelets; Z79.899 Other long term (current) drug therapy
CPT/HCPCS: 36415; 80048; 80076; 82077; 83735; 84484; 85025; 87635; 93005; 96372; 99285; J1650; J2560